=== PATIENT | female | born 2000 | race Hispanic/Latino ===

== ENCOUNTER → 2023-12-16 | Emergency (ER) | payer OTHER ==
--- NOTE | 2023-12-16 16:15 | EDPHYS ---
Physician Documentation [facility] Name: Tianna Sweeney Age: 23 yrs Sex: Female : 2000 Arrival Date: 12/16/2023 Time: 13:49 Bed Treatment Private MD: ED Physician Bhavesh Dean HPI: 12/16 16:32 This 23 yrs old Female presents to ER via Ambulatory with complaints of Wrist snw Pain, Sore Throat, Behavioral changes. 16:32 The patient presents with sore throat. Onset: The symptoms/episode began/occurred snw gradually, 2 week(s) ago, and became persistent. Associated signs and symptoms: The patient has no apparent associated signs or symptoms. The patient has experienced a previous episode. It is unknown whether or not the patient has recently seen a physician. 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 Flu vaccine is not up to date. - Social history:: Smoking status: Patient denies any tobacco usage or history of. ROS: 16:28 Constitutional: Negative for fever, chills, and weight loss, Eyes: Negative for injury, snw pain, redness, and discharge, 16:28 Neck: Negative for injury, pain, and swelling, Cardiovascular: Negative for chest pain, palpitations, and edema, Respiratory: Negative for shortness of breath, cough, wheezing, and pleuritic chest pain, Abdomen/GI: Negative for abdominal pain, nausea, vomiting, diarrhea, and constipation, Back: Negative for injury and pain, : Negative for injury, bleeding, discharge, and swelling, MS/Extremity: Negative for injury and deformity, Skin: Negative for injury, rash, and discoloration, Neuro: Negative for headache, weakness, numbness, tingling, and seizure, 16:28 ENT: Positive for sore throat, 16:28 Psych: Positive for anxiety, just stopped control. Discussed need to f/u PCP/Quality Control Coordinator for problems related to this, Exam: 16:27 Constitutional: This is a well developed, well nourished patient who is awake, alert, snw and in no acute distress. Head/Face: Normocephalic, atraumatic. Eyes: Pupils equal round and reactive to light, extra-ocular motions intact. Lids and lashes normal. Conjunctiva and sclera are non-icteric and not injected. Cornea within normal limits. Periorbital areas with no swelling, redness, or edema. ENT: Nares patent. No nasal discharge, no septal abnormalities noted. Tympanic membranes are normal and external auditory canals are clear. Oropharynx with no redness, swelling, or masses, exudates, or evidence of obstruction, uvula midline. Mucous membranes moist. Neck: Trachea midline, no thyromegaly or masses palpated, and no cervical lymphadenopathy. Supple, full range of motion without nuchal rigidity, or vertebral point tenderness. No Meningismus. Chest/axilla: Normal chest wall appearance and motion. Nontender with no deformity. No lesions are appreciated. Cardiovascular: Regular rate and rhythm with a normal S1 and S2. No gallops, murmurs, or rubs. Normal PMI, no JVD. No pulse deficits. Respiratory: Lungs have equal breath sounds bilaterally, clear to auscultation and percussion. No rales, rhonchi or wheezes noted. No increased work of breathing, no retractions or nasal flaring. Abdomen/GI: Soft, non-tender, with normal bowel sounds. No distension or tympany. No guarding or rebound. No evidence of tenderness throughout. Back: No spinal tenderness. No costovertebral tenderness. Full range of motion. Skin: Warm, dry with normal turgor. Normal color with no rashes, no lesions, and no evidence of cellulitis. MS/ Extremity: Pulses equal, no cyanosis. Neurovascular intact. Full, normal range of motion. Neuro: Awake and alert, GCS 15, oriented to person, place, time, and situation. Cranial nerves II-XII grossly intact. Motor strength 5/5 in all extremities. Sensory grossly intact. Cerebellar exam normal. Normal gait. Psych: Awake, alert, with orientation to person, place and time. Behavior, mood, and affect are within normal limits. Vital Signs: 14:05 Pulse 88; Resp 16; Temp 98.5(O); Pulse Ox 100% on R/A; Weight 59.87 kg; Height 5 ft. 0 hb in. ; Pain 3/10; 16:30 BP 104 / 59; Pulse 82; Resp 18; Pulse Ox 98% on R/A; tl4 14:05 Body Mass Index 25.78 (59.87 kg, 152.4 cm) hb 14:05 Pain Scale: Non-Verbal hb MDM: 15:12 Patient medically screened. snw 16:31 Differential diagnosis: gastroesophageal reflux disease, group A strep tonsillitis, snw laryngitis, tonsillitis, upper respiratory infection. Data reviewed: vital signs, nurses notes. Historians other than the Patient: Parent: Mom. Counseling: I had a detailed discussion with the patient and/or guardian regarding the historical points, exam findings, and any diagnostic results supporting the discharge/admit diagnosis, lab results, the need for outpatient follow up, to return to the emergency department if symptoms worsen or persist or if there are any questions or concerns that arise at home. Special discussion: Based on the history and exam findings, there is no indication for further emergent testing or inpatient evaluation. I discussed with the patient/guardian the need to see the primary care provider for further evaluation of the symptoms. 12/16 14:06 Order name: Flu; Complete Time: 15:32 snw 12/16 14:06 Order name: Strep snw 12/16 15:26 Order name: Throat Culture EDMS Administered Medications: No medications were administered Disposition Summary: 12/16/23 16:14 Discharge Ordered Notes: Location: Home snw Condition: Stable snw Diagnosis - Chronic pharyngitis snw Followup: snw - With: Emergency Department - When: As needed - Reason: Worsening of condition Followup: snw - With: Private Physician - When: 1 - 2 days - Reason: Recheck today's complaints, Continuance of care, Re-evaluation by your physician Discharge Instructions: - Discharge Summary Sheet snw - Food Choices for Gastroesophageal Reflux Disease, Adult snw - Gastroesophageal Reflux Disease, Adult snw - Sore Throat snw Forms: - Medication Reconciliation Form snw - Thank You Letter snw - Antibiotic Education snw - Prescription Opioid Use snw - Patient Portal Instructions snw - Leadership Thank You Letter snw Prescriptions: - Pepcid 20 mg Oral Tablet - take 1 tablet ORAL route once daily; 20 tablet; Refills: 0, Product Selection snw Permitted Signatures: Dispatcher [employer] EDMayuri Roberts FNP-C MOTOCROSS RACER-Csnw Allison Wolfe, RN RN hb
--- NOTE | 2023-12-16 16:15 | ER ---
Nurse's Notes [facility] Name: Tianna Sweeney Age: 23 yrs Sex: Female : 2000 Arrival Date: 12/16/2023 Time: 13:49 Bed Treatment Private MD: Diagnosis: Chronic pharyngitis Presentation: 12/16 14:05 Chief complaint: Parent and/or Guardian states: She has not been herself for the last hb few months, she has been crying a lot and aggressive, her right wrist has been hurting, she has been hitting herself, this all started when they put her on control." Also reports sore throat x 3 days. Coronavirus screen: At this time, the client does not indicate any symptoms associated with coronavirus-19. Ebola Screen: No symptoms or risks identified at this time. Initial Sepsis Screen: Does the patient meet any 2 criteria? No. Patient's initial sepsis screen is negative. Does the patient have a suspected source of infection? No. Patient's initial sepsis screen is negative. Risk Assessment: Do you want to hurt yourself or someone else? Patient reports no desire to harm self or others. Onset of symptoms is unknown. 14:05 Method Of Arrival: Ambulatory hb 14:05 Acuity: MARIELA 3 hb Triage Assessment: 16:29 General: Appears in no apparent distress. Behavior is calm, cooperative. Pain: tl4 Complains of pain in neck. EENT: Reports difficulty swallowing. Neuro: No deficits noted. Cardiovascular: No deficits noted. Respiratory: No deficits noted. GI: No deficits noted. No signs and/or symptoms were reported involving the gastrointestinal system. : No deficits noted. No signs and/or symptoms were reported regarding the genitourinary system. Derm: No deficits noted. No signs and/or symptoms reported regarding the dermatologic system. 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 Flu vaccine is not up to date. - Social history:: Smoking status: Patient denies any tobacco usage or history of. Screenin:30 [facility] ED Fall Risk Assessment (Adult) History of falling in the last 3 months, tl4 including since admission No falls in past 3 months (0 pts) Confusion or Disorientation No (0 pts) Intoxicated or Sedated No (0 pts) Impaired Gait No (0 pts) Mobility Assist Device Used No (0 pt) Altered Elimination No (0 pt) Score/Fall Risk Level 0 - 2 = Low Risk Oriented to surroundings, Maintained a safe environment, Educated pt \\T\\ family on fall prevention, incl call for assistance when getting out of bed, Assessed \\T\\ reinforced patient's understanding of fall precautions, Provided non-skid footwear, Hourly rounding (assess needs \\T\\ fall precautionary measures) done, Used ambulatory aids as needed (educated on \\T\\ assisted with), Used gait belt as appropriate. Abuse screen: Denies threats or abuse. Denies injuries from another. Nutritional screening: No deficits noted. Tuberculosis screening: No symptoms or risk factors identified. Assessment: 16:29 Reassessment: No changes from previously documented assessment. Patient and/or family tl4 updated on plan of care and expected duration. Pain level reassessed. Patient is alert, oriented x 3, equal unlabored respirations, skin warm/dry/pink. Pain: Complains of pain in neck. Respiratory: Airway is patent Respiratory effort is even, unlabored, Breath sounds are clear bilaterally. EENT: Throat is pink. Vital Signs: 14:05 Pulse 88; Resp 16; Temp 98.5(O); Pulse Ox 100% on R/A; Weight 59.87 kg; Height 5 ft. 0 hb in. ; Pain 3/10; 16:30 BP 104 / 59; Pulse 82; Resp 18; Pulse Ox 98% on R/A; tl4 14:05 Body Mass Index 25.78 (59.87 kg, 152.4 cm) hb 14:05 Pain Scale: Non-Verbal hb ED Course: 13:52 Patient arrived in ED. mg5 14:05 Mayuri Calvo [facility]-C [facility]. snw 14:05 Bhavesh Dean MD is Attending Physician. snw 14:09 Triage completed. hb 14:09 Arm band placed on. hb 15:06 Strep Sent. bc6 15:06 Flu Sent. bc6 16:19 Harjeet Flores is Primary Nurse. tl4 16:31 Patient has correct armband on for positive identification. Bed in low position. Call tl4 light in reach. Side rails up X 1. Adult w/ patient. Provided Education on: ed process. Client placed on continuous cardiac and pulse oximetry monitoring. NIBP monitoring applied. Door closed. Noise minimized. Lights dimmed. Moved to private room. Warm blanket given. 16:31 No provider procedures requiring assistance completed. Patient did not have IV access tl4 during this emergency room visit. Administered Medications: No medications were administered Medication: 16:30 VIS not applicable for this client. tl4 Outcome: 16:14 Discharge ordered by . elizabeth 16:31 Discharged to home ambulatory, with family, tl4 16:31 Condition: stable 16:31 Discharge instructions given to patient, family, Instructed on discharge instructions, follow up and referral plans. medication usage, Demonstrated understanding of instructions, follow-up care, medications, Prescriptions given X 1, 16:32 Patient left the ED. tl4 Signatures: Mayuri Calvo, USABILITY ENGINEER-C USABILITY ENGINEER-Csnw Allison Wolfe, SRIKANTH RN Crista Lui 6 [address] mg5 Harjeet Flores tl4
[2023-12-16 18:16] VITALS: TEMP 98.5
[2023-12-16 18:33] VITALS: BP 104/59; O2SAT 98
== END ==
LOC: ER 13:49
DX: J02.9 Acute pharyngitis, unspecified (principal); Q90.9 Down syndrome, unspecified; Z88.8 Allergy status to other drugs, medicaments and biological substances; Z28.310 Unvaccinated for COVID-19
CPT/HCPCS: 87070; 87081; 87804

== ENCOUNTER 2024-03-01 17:52 | Emergency (ER) | payer OTHER ==
[2024-03-01 18:53] LABS: Specific Gravity 1.028 (1.005-1.030)
[2024-03-01 18:56] LABS: Specific Gravity 1.028 (1.005-1.030); Sqamous Epithelial <5 /HPF (None Seen); Urine Bacteria None Seen /HPF (<20); Urine Bilirubin NEGATIVE (Negative); Urine Blood Negative (Negative); Urine Clarity Turbid (Clear); Urine Color Yellow (Yellow); Urine Culture Reflex Order NOT NEEDED; Urine Glucose NEGATIVE (Negative); Urine Ketones 2+ (Negative); Urine Microscopic Reflex YN ORDER UMIC; Urine Mucus 2+ /HPF (None Seen); Urine Nitrite NEGATIVE (Negative); Urine Protein TRACE (Negative); Urine RBC <5 /HPF (None Seen); Urine Urobilinogen 1+ (Normal); Urine WBC <5 /HPF (<5)
[2024-03-01] MEDS ORDERED: IBUPROFEN 200 MG TAB PO ONE (18:57)
--- NOTE | 2024-03-01 20:02 | RAD REPORT ---
EXAM DESCRIPTION: CT - Abdomen Pelvis Wo Contrast - 03/01/2024 7:09 pm CLINICAL HISTORY: FLANK PAIN COMPARISON: No comparisons TECHNIQUE: Thin cut axial CT imaging of the abdomen and pelvis was performed without IV contrast. Mu ltiplanar reformats were generated and reviewed. All CT scans are performed using dose optimization technique as appropriate and may include automated exposure control or mA/KV adjustment according to patient size. FINDINGS: No suspicious findings in the lung bases. The liver, spleen, adrenal glands, and pancreas show no suspicious findings. Gallbladder and biliary tree are also without suspicious finding. Symmetric renal contour, without suspicious parenchymal findings within limits of noncontrast techniq ue. No evidence of radiopaque calculi or hydroureteronephrosis. No dilated bowel loops or bowel wall thickening. Appendix is unremarkable. No free air, free fluid or inflammatory stranding. No hernia, mass or bulky lymphadenopathy. The urinary bladder is decompresse d limiting evaluation. No suspicious bony findings. IMPRESSION: No acute intra-abdominal process.
--- NOTE | 2024-03-01 20:54 | EDPHYS ---
Physician Documentation [facility] Name: Tianna Sweeney Age: 23 yrs Sex: Female : 2000 Arrival Date: 03/01/2024 Time: 17:52 Bed 19 Private MD: ED Physician Oscar Tanner HPI: 03/01 19:10 This 23 yrs old Female presents to ER via Ambulatory with complaints of Side rt pain. 19:10 Patient presents to the ED with a right flank pain starting today. Denies any urinary rt symptoms, injury. Denies nausea, vomiting, other acute complaints, symptoms are moderate in severity, aching nature, nonradiating, no other aggravating or alleviating factors.. 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 - Infectious Disease History:: Denies. - Social history:: Smoking status: Patient denies any tobacco usage or history of. - Family history:: not pertinent. ROS: 19:10 Constitutional: Negative for fever, chills, and weight loss, Cardiovascular: Negative sp4 for chest pain, palpitations, and edema, Respiratory: Negative for shortness of breath, cough, wheezing, and pleuritic chest pain, Abdomen/GI: Positive for right flank pain Skin: Negative for injury, rash, and discoloration, Neuro: Negative for headache, weakness, numbness, tingling, and seizure, Psych: Negative for depression, anxiety, suicide ideation, homicidal ideation, and hallucinations, 19:10 Back: Positive for flank pain, Negative for injury or acute deformity, Exam: 19:10 Constitutional: This is a well developed, well nourished patient who is awake, alert, rt and in no acute distress. Head/Face: Normocephalic, atraumatic. Chest/axilla: Normal chest wall appearance and motion. Nontender with no deformity. No lesions are appreciated. Cardiovascular: Regular rate and rhythm with a normal S1 and S2. No gallops, murmurs, or rubs. Normal PMI, no JVD. No pulse deficits. Respiratory: Lungs have equal breath sounds bilaterally, clear to auscultation and percussion. No rales, rhonchi or wheezes noted. No increased work of breathing, no retractions or nasal flaring. Abdomen/GI: Soft, non-tender, with normal bowel sounds. No distension or tympany. No guarding or rebound. No evidence of tenderness throughout. Skin: Warm, dry with normal turgor. Normal color with no rashes, no lesions, and no evidence of cellulitis. MS/ Extremity: Pulses equal, no cyanosis. Neurovascular intact. Full, normal range of motion. Neuro: Awake and alert, GCS 15, oriented to person, place, time, and situation. Cranial nerves II-XII grossly intact. Motor strength 5/5 in all extremities. Sensory grossly intact. Cerebellar exam normal. Normal gait. 19:10 Back: Mild right CVAT, no midline tenderness, no step-offs, Vital Signs: 18:23 BP 104 / 76; Pulse 71; Resp 16; Temp 97.8; Pulse Ox 100% on R/A; Weight 52.16 kg; iw Height 5 ft. 0 in. ; 19:04 BP 108 / 73; Pulse 74; Resp 15; Pulse Ox 100% on R/A; tl4 20:26 BP 109 / 66; Pulse 70; Resp 16; Pulse Ox 100% on R/A; tl4 21:22 BP 108 / 65; Pulse 68; Resp 16; Temp 98.3(O); Pulse Ox 97% on R/A; Pain 8/10; tl4 18:23 Body Mass Index 22.46 (52.16 kg, 152.4 cm) iw 21:22 Pain Scale: Adult tl4 MDM: 18:17 Patient medically screened. rt 20:46 ED course: EXAM DESCRIPTION: CT - Abdomen Pelvis Wo Contrast - 03/01/2024 7:09 pm sp4 CLINICAL HISTORY: FLANK PAIN COMPARISON: No comparisons TECHNIQUE: Thin cut axial CT imaging of the abdomen and pelvis was performed without IV contrast. Multiplanar reformats were generated and reviewed. All CT scans are performed using dose optimization technique as appropriate and may include automated exposure control or mA/KV adjustment according to patient size. FINDINGS: No suspicious findings in the lung bases. The liver, spleen, adrenal glands, and pancreas show no suspicious findings. Gallbladder and biliary tree are also without suspicious finding. Symmetric renal contour, without suspicious parenchymal findings within limits of noncontrast technique. No evidence of radiopaque calculi or hydroureteronephrosis. No dilated bowel loops or bowel wall thickening. Appendix is unremarkable. No free air, free fluid or inflammatory stranding. No hernia, mass or bulky lymphadenopathy. The urinary bladder is decompressed limiting evaluation. No suspicious bony findings. IMPRESSION: No acute intra-abdominal process. . 03/02 20:48 Differential Diagnosis altered mental status, sepsis, flu, Abdominal pain. Data sp4 reviewed: vital signs, nurses notes, radiologic studies, CT scan. ED course: Stable for discharge home. 03/01 18:23 Order name: Test, Urine; Complete Time: 18:59 rt 03/01 18:23 Order name: Urinalysis w/ reflexes; Complete Time: 18:59 rt 03/01 18:23 Order name: CT Abd/Pelvis - Without Contrast; Complete Time: 20:44 rt Administered Medications: 03/01 18:50 CANCELLED (Patient Refused): TORadol - [id number] mg IVP once tl4 19:04 Drug: Ibuprofen PO 600 mg PO once Route: PO; tl4 20:13 Follow up: Response: No adverse reaction; Pain is decreased tl4 Disposition Summary: 03/01/24 20:53 Discharge Ordered Problem: new sp4 Symptoms: have improved sp4 Condition: Stable sp4 Diagnosis - Low back pain sp4 - Proteinuria, unspecified sp4 - Acute musculoskeletal back pain sp4 Followup: sp4 - With: Private Physician - When: 10 - 14 days - Reason: Recheck today's complaints Discharge Instructions: - Discharge Summary Sheet sp4 - Acute Back Pain, Adult sp4 Forms: - Patient Portal Instructions sp4 Prescriptions: - Ibuprofen 600 mg Oral Tablet - take 1 tablet ORAL route every 6 hours As needed take with food; 30 tablet; sp4 Refills: 0, Product Selection Permitted - methocarbamol 750 mg Oral tablet - take 2 tablets ORAL route every 8 hours for 2 days PRN back pain; 40 tablet; sp4 Refills: 0, Product Selection Permitted Signatures: Dispatcher [employer] Iris Rice RN RN iw Nic James MD MD rt Oscar Tanner MD MD sp4 LogdaHarjeet gonzalez RN RN tl4 Corrections: (The following items were deleted from the chart) 18:24 18:24 CBC+H.LAB.BRZ ordered. EDMS EDMS 18:24 18:24 COMPREHENSIVE METABOLIC PANEL+C.LAB.BRZ ordered. EDMS EDMS 18:24 18:24 LIPASE+C.LAB.BRZ ordered. EDMS EDMS 18:24 18:24 Test, Urine+UC.LAB.BRZ ordered. EDMS EDMS 18:24 18:24 Urinalysis+U.LAB.BRZ ordered. EDMS EDMS 18:24 18:24 Abdomen Pelvis Wo Con+CT.RAD.BRZ ordered. EDMS EDMS 18:50 18:23 TORadol - Ketorolac IVP 15 mg IVP once ordered. rt tl4 03/02 20:48 03/01 19:10 Constitutional: Negative for fever, chills, and weight loss, sp4 Cardiovascular: Negative for chest pain, palpitations, and edema, Respiratory: Negative for shortness of breath, cough, wheezing, and pleuritic chest pain, Abdomen/GI: Negative for abdominal pain, nausea, vomiting, diarrhea, and constipation, Skin: Negative for injury, rash, and discoloration, Neuro: Negative for headache, weakness, numbness, tingling, and seizure, Psych: Negative for depression, anxiety, suicide ideation, homicidal ideation, and hallucinations, rt
--- NOTE | 2024-03-01 20:54 | ER ---
Nurse's Notes [facility] Name: Tianna Sweeney Age: 23 yrs Sex: Female : 2000 Arrival Date: 03/01/2024 Time: 17:52 Bed 19 Private MD: Diagnosis: Low back pain;Proteinuria, unspecified;Acute musculoskeletal back pain Presentation: 03/01 18:23 Chief complaint: Parent and/or Guardian states: right side pain started today , no iw n/v/d. Coronavirus screen: At this time, the client does not indicate any symptoms associated with coronavirus-19. Ebola Screen: Patient negative for fever greater than or equal to 101.5 degrees Fahrenheit, and additional compatible Ebola Virus Disease symptoms Patient denies exposure to infectious person. Patient denies travel to an Ebola-affected area in the 21 days before illness onset. No symptoms or risks identified at this time. Initial Sepsis Screen: Does the patient meet any 2 criteria? No. Patient's initial sepsis screen is negative. Does the patient have a suspected source of infection? No. Patient's initial sepsis screen is negative. Risk Assessment: Do you want to hurt yourself or someone else? Patient reports no desire to harm self or others. Onset of symptoms was March 01, 2024. 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 - Infectious Disease History:: Denies. - Social history:: Smoking status: Patient denies any tobacco usage or history of. - Family history:: not pertinent. Screenin:52 [facility] ED Fall Risk Assessment (Adult) History of falling in the last 3 months, tl4 including since admission No falls in past 3 months (0 pts) Confusion or Disorientation No (0 pts) Intoxicated or Sedated No (0 pts) Impaired Gait No (0 pts) Mobility Assist Device Used No (0 pt) Altered Elimination No (0 pt) Score/Fall Risk Level 0 - 2 = Low Risk Oriented to surroundings, Maintained a safe environment, Educated pt \T\ family on fall prevention, incl call for assistance when getting out of bed, Assessed \T\ reinforced patient's understanding of fall precautions. Abuse screen: Denies threats or abuse. Denies injuries from another. Nutritional screening: No deficits noted. Tuberculosis screening: No symptoms or risk factors identified. Assessment: 18:50 General: Appears uncomfortable, Behavior is uncooperative. Pain: Complains of pain in tl4 back and abdomen. Neuro: Level of Consciousness is awake, alert, obeys commands, Oriented to person, place, time, situation, Moves all extremities. Gait is steady, Speech is normal. Cardiovascular: Capillary refill < 3 seconds Patient's skin is warm and dry. Respiratory: Airway is patent Respiratory effort is even, unlabored, Respiratory pattern is regular, symmetrical, Breath sounds are clear bilaterally. GI: Reports lower abdominal pain, upper abdominal pain, Patient currently denies diarrhea, nausea, vomiting. : No signs and/or symptoms were reported regarding the genitourinary system. EENT: No signs and/or symptoms were reported regarding the EENT system. Derm: No signs and/or symptoms reported regarding the dermatologic system. Musculoskeletal: No signs and/or symptoms reported regarding the musculoskeletal system. 20:25 Reassessment: Patient and/or family updated on plan of care and expected duration. Pain tl4 level reassessed. Patient is alert, oriented x 3, equal unlabored respirations, skin warm/dry/pink. Patient states feeling better. 21:22 Reassessment: No changes from previously documented assessment. Patient and/or family tl4 updated on plan of care and expected duration. Pain level reassessed. Patient is alert, oriented x 3, equal unlabored respirations, skin warm/dry/pink. Vital Signs: 18:23 BP 104 / 76; Pulse 71; Resp 16; Temp 97.8; Pulse Ox 100% on R/A; Weight 52.16 kg; iw Height 5 ft. 0 in. ; 19:04 BP 108 / 73; Pulse 74; Resp 15; Pulse Ox 100% on R/A; tl4 20:26 BP 109 / 66; Pulse 70; Resp 16; Pulse Ox 100% on R/A; tl4 21:22 BP 108 / 65; Pulse 68; Resp 16; Temp 98.3(O); Pulse Ox 97% on R/A; Pain 8/10; tl4 18:23 Body Mass Index 22.46 (52.16 kg, 152.4 cm) iw 21:22 Pain Scale: Adult tl4 ED Course: 17:54 Patient arrived in ED. ra3 17:55 Nic James MD is Attending Physician. rt 18:24 Triage completed. iw 18:25 Arm band placed on. iw 18:29 Harjeet Flores RN is Primary Nurse. tl4 18:50 Urinalysis w/ reflexes Sent. tl4 18:50 Test, Urine Sent. tl4 18:53 Patient has correct armband on for positive identification. Bed in low position. Call tl4 light in reach. Side rails up X 1. Adult w/ patient. pt refused gown. Provided Education on: ED process. pt refused continuous monitoring. Door closed. Noise minimized. Lights dimmed. Moved to private room. Warm blanket given. 19:05 Attending Physician role handed off by Nic James MD sp4 19:05 Oscar Tanner MD is Attending Physician. sp4 19:10 CT Abd/Pelvis - Without Contrast In Process Unspecified. EDMS 19:12 Urine collected: clean catch specimen, cloudy. tl4 21:23 No provider procedures requiring assistance completed. Patient did not have IV access tl4 during this emergency room visit. Administered Medications: 18:50 CANCELLED (Patient Refused): TORadol - [id number] mg IVP once tl4 19:04 Drug: Ibuprofen PO 600 mg PO once Route: PO; tl4 20:13 Follow up: Response: No adverse reaction; Pain is decreased tl4 Medication: 18:52 VIS not applicable for this client. tl4 Outcome: 20:53 Discharge ordered by . sp4 21:22 Discharged to home ambulatory, with family, tl4 21:22 Condition: stable 21:22 Discharge instructions given to patient, family, Instructed on discharge instructions, follow up and referral plans. medication usage, Demonstrated understanding of instructions, follow-up care, medications, Prescriptions given X 2, 21:23 Patient left the ED. tl4 Signatures: Dispatcher [employer] EDMS Iris Arroyo RN RN Nic James MD MD rt Oscar Tanner MD MD sp4 Harjeet Flores RN RN tl4 Dianna, Fanny ra3
[2024-03-01 22:11] VITALS: BP 108/65; TEMP 98.3; O2SAT 97
== END 2024-03-01 21:23 | disposition home or self-care (01) ==
LOC: ER 17:52
DX: M54.50 Low back pain, unspecified (principal); R80.9 Proteinuria, unspecified; M79.18 Myalgia, other site; Q90.9 Down syndrome, unspecified; Z88.0 Allergy status to penicillin; Z88.8 Allergy status to other drugs, medicaments and biological substances
CPT/HCPCS: 74176; 81001; 81025; 99284

== ENCOUNTER 2025-04-03 14:01 | Emergency (ER) | payer MEDICAID ==
[2025-04-03] MEDS ORDERED: MAGNES/ALUMIN/SIMET 30ML UCUP ONE (14:59)
[2025-04-03] MEDS ORDERED: LIDOCAINE VISCOUS 2% 10ML ORAL SOLN ONE (14:59)
--- NOTE | 2025-04-03 15:28 | RAD REPORT ---
EXAMINATION: TWO VIEW CHEST XR CLINICAL INDICATION: CHEST PAIN TECHNIQUE: 2 views of the chest was performed. COMPARISON: No prior exam. FINDINGS: The lungs are well inflated and clear. The heart is upper limit of normal in size. No displaced fract ures evident. IMPRESSION: No acute or significant abnormalities.
--- NOTE | 2025-04-03 15:46 | EDPHYS ---
Physician Documentation [facility] Name: Tianna Sweeney Age: 24 yrs Sex: Female : 2000 Arrival Date: 04/03/2025 Time: 14:01 Bed 16 Private MD: ED Physician Rafael Spencer HPI: 04/03 14:59 This 24 yrs old Female presents to ER via Ambulatory with complaints of Chest sb4 Pain. 14:59 chest pain for a a few days now. mom took to her holistic doctor a few days ago, was sb4 diagnosed with andrea funk based on symptoms and possibly GERD, no tests were done. patient is autistic and has down syndrome so is a poor historian and uncooperative. no n/v/d, fever, chills, cough. 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 - Infectious Disease History:: Denies. - Social history:: Smoking status: Patient denies any tobacco usage or history of. ROS: 14:59 Constitutional: Negative for fever, chills, and weight loss, sb4 14:59 Cardiovascular: Positive for chest pain, 14:59 All other systems are negative, Exam: 14:59 Head/Face: Normocephalic, atraumatic. Eyes: Extra-ocular motions intact. Periorbital sb4 areas with no swelling, redness, or edema. ENT: Mucous membranes moist. 14:59 Cardiovascular: Regular rate and rhythm with a normal S1 and S2. Respiratory: No increased work of breathing, no retractions or nasal flaring. Skin: Warm, dry with normal turgor. Normal color with no rashes, no lesions, and no evidence of cellulitis. 14:59 Constitutional: The patient appears alert, awake, agitated, 14:59 ENT: Posterior pharynx: Airway: normal, no evidence of obstruction, Tonsils: are normal in appearance, Vital Signs: 14:09 BP 114 / 68; Pulse 79; Resp 16; Temp 97.6; Pulse Ox 100% on R/A; Weight 54.43 kg; dd2 Height 5 ft. 0 in. ; 15:46 BP 117 / 64; Pulse 84; Resp 18; Pulse Ox 100% on R/A; Pain 3/10; ld1 14:09 Body Mass Index 23.44 (54.43 kg, 152.4 cm) dd2 15:46 Pain Scale: Adult ld1 MDM: 14:07 Medical Screening Exam initiated sb4 15:47 Data reviewed: vital signs, nurses notes, EKG, radiologic studies, and as a result, I sb4 will discharge patient. Test considered but Not performed: Labs: patient refused. Counseling: I had a detailed discussion with the patient and/or guardian regarding the historical points, exam findings, and any diagnostic results supporting the discharge/admit diagnosis, radiology results, the need for outpatient follow up, for definitive care, to return to the emergency department if symptoms worsen or persist or if there are any questions or concerns that arise at home. 04/03 14:57 Order name: Chest Pa And Lat (2 Views) XRAY; Complete Time: 15:28 sb4 04/03 14:57 Order name: EKG - Nurse/Tech; Complete Time: 15:46 sb4 EC:46 Rate is 73 beats/min. Rhythm is regular, Normal Sinus Rhythm. IL interval is normal at sb4 130 msec. QRS interval is normal at 74 msec. QT interval is normal at 390 msec. No Q waves. T waves are Normal. No ST changes noted. Clinical impression: Normal ECG. Interpreted by me. Reviewed by me. Administered Medications: 15:46 Not Given (Patient Refused): GI Cocktail without - (maaloxsuspension 30 ml, ld1 lidocaine mucous membrane liquid 2 % 15 ml) PO once Disposition: 18:51 I was immediately available on-site in the Emergency Department for consultation in the ms3 care of the patient. Disposition Summary: 04/03/25 15:45 Discharge Ordered Notes: Location: Home sb4 Problem: new sb4 Symptoms: have improved sb4 Condition: Stable sb4 Diagnosis - Chest pain, unspecified sb4 Followup: sb4 - With: Emergency Department - When: As needed - Reason: Trouble breathing, Worsening of condition Discharge Instructions: - Discharge Summary Sheet sb4 - Food Choices for Gastroesophageal Reflux Disease, Adult sb4 - Nonspecific Chest Pain, Adult, [id number] sb4 Forms: - Patient Portal Instructions sb4 - Leadership Thank You Letter sb4 Signatures: Dispatcher [employer] EDRafael Prado, DO ELIZABETH ms3 Ann-Marie Lazcano PA-C PA-C sb4 SUHAS JACKSON RN RN dd2 Justa Spencer RN ld1
--- NOTE | 2025-04-03 15:46 | ER ---
Nurse's Notes [facility] Name: Tianna Sweeney Age: 24 yrs Sex: Female : 2000 Arrival Date: 04/03/2025 Time: 14:01 Bed 16 Private MD: Diagnosis: Chest pain, unspecified Presentation: 04/03 14:09 Chief complaint: Parent and/or Guardian states: CHEST PAIN SINCE SUNDAY. TOOK PT TO dd2 THE [facility] AND WAS DX WITH NATHEN STEVE, NO LABS OR X-RAYS DONE. MOM REPORTS DRY COUGH AND SWOLLEN GLANDS FOR 'AWHILE". Coronavirus screen: At this time, the client does not indicate any symptoms associated with coronavirus-19. Ebola Screen: No symptoms or risks identified at this time. Initial Sepsis Screen: Does the patient meet any 2 criteria? No. Patient's initial sepsis screen is negative. Does the patient have a suspected source of infection? No. Patient's initial sepsis screen is negative. Risk Assessment: Do you want to hurt yourself or someone else? Patient reports no desire to harm self or others. Onset of symptoms was March 31, 2025. 14:09 Method Of Arrival: Ambulatory dd2 14:09 Acuity: MARIELA 3 dd2 Triage Assessment: 14:12 General: Appears in no apparent distress. Behavior is agitated. Pain: Complains of pain dd2 in chest. Cardiovascular: Reports chest pain, JVD is absent Patient's skin is warm and dry. Parent/caregiver reports patient has had chest pain. 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 - Infectious Disease History:: Denies. - Social history:: Smoking status: Patient denies any tobacco usage or history of. Screenin:47 [facility] ED Fall Risk Assessment (Adult) History of falling in the last 3 months, ld1 including since admission No falls in past 3 months (0 pts) Confusion or Disorientation No (0 pts) Intoxicated or Sedated No (0 pts) Impaired Gait No (0 pts) Mobility Assist Device Used No (0 pt) Altered Elimination No (0 pt) Score/Fall Risk Level 0 - 2 = Low Risk Oriented to surroundings, Hourly rounding (assess needs \\T\\ fall precautionary measures) done. Abuse screen: Denies threats or abuse. Denies injuries from another. Nutritional screening: No deficits noted. Tuberculosis screening: No symptoms or risk factors identified. Assessment: 15:46 General: Appears in no apparent distress. comfortable, Behavior is calm, cooperative, ld1 appropriate for age. Pain: Complains of pain in chest Pain does not radiate. Pain currently is 8 out of 10 on a pain scale. Quality of pain is described as throbbing, Pain began suddenly, Is continuous. Neuro: Level of Consciousness is awake, alert, obeys commands, Oriented to person, place, time, situation. Cardiovascular: Capillary refill < 3 seconds Patient's skin is warm and dry. Rhythm is sinus rhythm. Respiratory: Airway is patent Respiratory effort is even, unlabored. GI: Abdomen is round non-distended. : No signs and/or symptoms were reported regarding the genitourinary system. EENT: No signs and/or symptoms were reported regarding the EENT system. Derm: No signs and/or symptoms reported regarding the dermatologic system. Musculoskeletal: No signs and/or symptoms reported regarding the musculoskeletal system. 15:53 Reassessment: Patient appears in no apparent distress at this time. No changes from ld1 previously documented assessment. Patient and/or family updated on plan of care and expected duration. Pain level reassessed. Patient is alert, oriented x 3, equal unlabored respirations, skin warm/dry/pink. Vital Signs: 14:09 BP 114 / 68; Pulse 79; Resp 16; Temp 97.6; Pulse Ox 100% on R/A; Weight 54.43 kg; dd2 Height 5 ft. 0 in. ; 15:46 BP 117 / 64; Pulse 84; Resp 18; Pulse Ox 100% on R/A; Pain 3/10; ld1 14:09 Body Mass Index 23.44 (54.43 kg, 152.4 cm) dd2 15:46 Pain Scale: Adult ld1 ED Course: 14:03 Patient arrived in ED. im 14:04 Ann-Marie Lazcano PA-C is PHCP. sb4 14:04 Rafael Spencer DO is Attending Physician. sb4 14:12 Triage completed. dd2 14:12 Arm band placed on right wrist. dd2 14:58 Justa Spencer, RN is Primary Nurse. ld1 15:22 Chest Pa And Lat (2 Views) XRAY In Process Unspecified. EDMS 15:47 Patient has correct armband on for positive identification. Placed in gown. Bed in low ld1 position. Call light in reach. Side rails up X2. compliance monitor on. Pulse ox on. NIBP on. Door closed. Noise minimized. Warm blanket given. 15:47 No provider procedures requiring assistance completed. Patient did not have IV access ld1 during this emergency room visit. Patient maintains SpO2 saturation greater than 95% on room air. Administered Medications: 15:46 Not Given (Patient Refused): GI Cocktail without - (maaloxsuspension 30 ml, ld1 lidocaine mucous membrane liquid 2 % 15 ml) PO once Medication: 15:49 VIS not applicable for this client. ld1 Outcome: 15:45 Discharge ordered by MD. sb4 15:49 Discharged to home ambulatory, with family, ld1 15:49 Condition: stable 15:49 Discharge instructions given to patient, family, Instructed on discharge instructions, follow up and referral plans. Demonstrated understanding of instructions, follow-up care, 15:53 Patient left the ED. ld1 Signatures: Dispatcher [employer] [facility] Justa Spencer, RN RN ld1 Ann-Marie Lazcano PARadhaC PA-C sb4 Heather Farias DIANA RN RN dd2
[2025-04-03 15:59] VITALS: TEMP 97.6; O2SAT 100
[2025-04-03 16:00] VITALS: BP 117/64
== END 2025-04-03 15:53 | disposition home or self-care (01) ==
LOC: ER 14:01
DX: R07.9 Chest pain, unspecified (principal); Q90.9 Down syndrome, unspecified
CPT/HCPCS: 71046; 93005; 99284